=== PATIENT | male | born 1960 | race Caucasian/White ===

== ENCOUNTER 2019-10-20 12:24 | Emergency (ER) | payer OTHER, SELFPAY ==
[2019-10-20 12:26] VITALS: BP 193/116; PULSE 87; RESP 18; TEMP 36.5; O2SAT 96; BMI 28.1
--- NOTE | 2019-10-20 12:26 | NURSING ---
NO OLD EKGS
--- NOTE | 2019-10-20 12:30 | EKG12_ITS ---
Test Reason : CP Blood Pressure : / mmHG Vent. Rate : 063 BPM Atrial Rate : 063 BPM P-R Int : 136 ms QRS Dur : 096 ms QT Int : 388 ms P-R-T Axes : 043 036 060 degrees QTc Int : 397 ms Normal sinus rhythm with sinus arrhythmia Normal ECG Confirmed by SILVIA ANNE, SUSIE ([id number]), copy editor MIRIAM ANTON ([id number]) on 10/25/2019 9:26:50 AM Referred By: TYESHA Confirmed By:CARISA VEGA MD
--- NOTE | 2019-10-20 12:44 | ED.DCSUM_ITS ---
- ER Visit Summary Date of Service: 10/20/19 Chief Complaint: Left-sided chest discomfort History of Present Illness: The patient is a 59 M with COPD and a smoker. No history of cardiac disease. No prior stress test or heart catheterization. Patient works operating equipment. States about an hour ago while operating equipment a surrogate left-sided chest discomfort. He describes it as a stabbing and a pressure. No radiation. He denies any shortness of breath, nausea or diaphoresis. He denies any recent exertional symptoms or chest pain. States with his COPD he occasionally does get short of breath. That is not new or different or worse. He denies any leg pain or swelling. No history of DVT or PE. No recent travel, surgery or immobilization. No recent hospitalization. No hemoptysis. No pleuritic nature to the pain. Physical Examination: Middle-aged male no acute distress initial blood pressure elevated 193/116. Pulse ox 96% on room air no signs hypoxia. H EENT exam unremarkable. Neck nontender no lymphadenopathy no JVD. Chest wall nontender. Lungs clear to auscultation bilaterally. Heart regular rhythm occasional PVC rate approximately 85. Abdomen soft nontender normal bowel sounds no peritoneal signs. Extremities moves all 4. Calves nontender without edema or cords. Neurologically is awake alert without focal motor deficits. Test Results: EKG shows normal sinus rhythm rate of 86 with occasional PVCs. No NE or ischemia. Second EKG performed at 1:39 PM was a sinus rhythm rate of 63 was read as normal. No NE or ischemia and no PVCs. CBC normal. Chemistries normal. Normal creatinine gap. Troponin normal. I discussed all test results with the patient and his . His is at bedside. On repeat exam at 1:49 PM is doing well. He is symptom-free. Patient does not want to be admitted. He does not want a second troponin. Emergency Department Course and Treatment: Cardiac work-up with patient treated with p.o. aspirin. No risk factors for DVT or PE no history. With significant family history of coronary disease. Treatment Plan: Log his blood pressure twice daily. He has appointment to see his doctor next week. Strongly encouraged outpatient stress test at his local hospital in [place]. Stop smoking we discussed smoking cessation. Disposition: Discharge Impression: Acute atypical left-sided chest pain of uncertain etiology Elevated blood pressure This note was generated with Dragon dictation software. It may contain incorrect words, spelling, and punctuation that were not noted in review of the chart prior to signing ED Disposition - Plan for ED Patient: Referrals: [facility],Out of [NON-STAFF] -
[2019-10-20 12:46] LABS: Absolute Lymphocyte Count 3.26 X10^3/uL (0.83-4.51); Absolute Neutrophil Count 5.6 X10^3/uL (2.0-7.7); Basophil# 0.02 X10^3/uL; Basophil% 0.2 % (0-1); Eosinophil# 0.11 X10^3/uL; Eosinophils% 1.1 % (0-5); Hematocrit 46.4 % (40-54); Hemoglobin 16.5 g/dL (13.0-16.5); Lymphocyte # 3.26 X10^3/ul (4.0); Lymphocyte % 33.6 % (19-41); Mean Corp Hgb Conc 35.6 g/dL (32-36); Mean Corpuscular Hgb 31.5 pg (27.0-32.0); Mean Corpuscular Volume 88.5 fL (80-94); Mean Platelet Vol. 10.6 fl (6.2-12.0); Monocyte# 0.65 X10^3/uL; Monocyte% 6.7 % (0-10); NRBC Flagged by Analyzer 0 % (0-5); Neutrophil # 5.62 X10^3/uL (2.7-7.7); Neutrophil % 58.1 % (47-70); Platelet Count 221 K/mm3 (150-450); Red Blood Count 5.24 M/mm3 (4.6-6.2); White Blood Count 9.7 K/mm3 (4.4-11.0)
[2019-10-20] MEDS: Aspirin 81 MG TAB.CHEW 324 MG PO (12:58)
[2019-10-20 13:05] LABS: Anion Gap 6 (5-15); BUN 17 mg/dL (7-18); BUN/Creat Ratio 18.6 RATIO (10-20); Calcium,Total 9.3 mg/dL (8.5-10.1); Chloride 108 mmol/L (98-107); Creatinine, Serum 0.91 mg/dL (0.70-1.30); EST Glomerular Filtration Rate 90 mL/min (>60); Est Glom Filt Rate - Afr Amer 109 mL/min (>60); Estimated Creatinine Clearance 90.25 ml/min; Glucose 91 mg/dL (74-106); Potassium 3.8 mmol/L (3.5-5.1); Sodium Level 139 mmol/L (136-145)
--- NOTE | 2019-10-20 13:10 | RAD_ITS ---
STUDY: X-RAY CHEST REASON FOR EXAM: Male, 59 years old. CP STARTING 1 HOUR COLD MEAT CHEF TECHNIQUE: Single AP portable view of the chest. COMPARISON: None. FINDINGS: EKG electrodes are seen. The lungs are clear and expanded. Scattered calcified granulomas. There is no demonstrated pleural abnormality. Normal size heart. Normal mediastinum and dafne. Normal visualized pulmonary arteries. There is atherosclerotic tortuosity of the aortic arch and descending thoracic aorta. Normal visualized thoracic spine. Normal visualized ribs, clavicles, and shoulders. There is no demonstrated abnormality of the visualized soft tissue structures of the upper abdomen. RAD/Chest 1 View (Portable) IMPRESSION: No acute abnormality seen. Electronically Signed: Ari Smith, at 13:50 EDT , Service support ,
--- NOTE | 2019-10-20 13:33 | EKG12_ITS ---
Test Reason : CP Blood Pressure : / mmHG Vent. Rate : 086 BPM Atrial Rate : 086 BPM P-R Int : 138 ms QRS Dur : 090 ms QT Int : 356 ms P-R-T Axes : 052 040 062 degrees QTc Int : 426 ms Sinus rhythm with occasional Premature ventricular complexes Otherwise normal ECG Confirmed by SILVIA ANNE, SUSIE ([id number]), newspaper copy editor MIRIAM ANTON ([id number]) on 10/25/2019 9:27:03 AM Referred By: TYESHA Confirmed By:CARISA VEGA MD
[2019-10-20 13:42] VITALS: BP 165/111; PULSE 78; RESP 16; O2SAT 97
--- NOTE | 2019-10-20 13:53 | ED.DEP ---
ED Disposition - Plan for ED Patient: Disposition: Home or Assisted Living Instructions: ED Chest Pain Atypical Unkn Cause, High Blood Pressure (Hypertension) Referrals: [facility],Out of [NON-STAFF] - Keep Chriss appointment Additional Instructions: Log your blood pressure twice daily and show those readings to your doctor when you see him next week. Call your doctor's office see if they can move up your appointment sooner than next Friday. Talk to your doctor about outpatient stress test. You have atypical chest pain that may or may not be cardiac. Your test all look good today but that does not rule out underlying blockage of your coronary arteries of your heart. Stop smoking. Return to this or your local ER if you develop recurrent chest pain, worsening shortness of breath or feel worse.
[2019-10-20 14:18] VITALS: BP 158/102; PULSE 72; RESP 18; TEMP 35.5
== END 2019-10-20 14:20 | disposition home or self-care (01) ==
PROVIDERS: Emergency Provider Emergency Medicine
DX: R07.89 Other chest pain (principal); R03.0 Elevated blood-pressure reading, without diagnosis of hypertension; F17.200 Nicotine dependence, unspecified, uncomplicated; J44.9 Chronic obstructive pulmonary disease, unspecified
CPT/HCPCS: 71045; 80048; 84484; 85025; 93005; 99285; A4216